=== PATIENT | male | born 1975 | race Two or more races ===

== ENCOUNTER → 2024-09-25 | Outpatient (CLI) | payer SELFPAY ==
[2024-09-25 08:29] LABS: Basophils % (Auto) 1 % (0-2.5); Eosinophils # (Auto) 0.2 Thou/mm3 (0.0-0.5); Eosinophils % (Auto) 3 % (0-10); Hematocrit 49.9 % (41.0-53.0); Hemoglobin 16.7 g/dL (13.5-16.0); Immature Granulocytes % (Auto) 0 % (0-0); Immature Granulocytes Auto 0.01 Thou/mm3 (0.00-0.00); Lymphocytes # (Auto) 2.2 Thou/mm3 (1.0-4.8); Lymphocytes % (Auto) 34 % (10-50); Mean Corpuscular HGB Conc 33.5 g/dl (31.0-37.0); Mean Corpuscular Hemoglobin 28.7 pg (25.0-35.0); Mean Corpuscular Volume 86 fL (80-100); Monocytes # (Auto) 0.7 Thou/mm3 (0.0-0.8); Monocytes % (Auto) 11 % (0-12); Neutrophils # (Auto) 3.5 Thou/mm3 (1.8-7.7); Neutrophils % (Auto) 52 % (37-80); Nucleated Red Blood Cell % 0 /100 WBC (0); Platelet Count 270 Thou/mm3 (140-440); RDW Standard Deviation 38.8 fL (35.1-43.9); Red Blood Count 5.81 Miln/mm3 (4.50-5.90); White Blood Count 6.6 Thou/mm3 (3.8-10.6)
[2024-09-25 08:54] LABS: Vitamin D 25 Hydroxy Total 25.5 ng/mL (7.3-40.2)
[2024-10-03 06:45] LABS: Estradiol, Ultrasensitive* 14 pg/mL (< OR = 29); Testosterone, Free,Dialysis 306.6 pg/mL (35.0-155.0); Testosterone, Total, Dialysis 1137 ng/dL (250-1100)
== END | disposition home or self-care (01) ==
LOC: COPL 07:15
PROVIDERS: PCP Internal Medicine
DX: D51.9 Vitamin B12 deficiency anemia, unspecified (principal); E29.1 Testicular hypofunction; M81.0 Age-related osteoporosis without current pathological fracture; R68.82 Decreased libido
CPT/HCPCS: 36415; 82306; 82670; 84402; 84403; 85025

== ENCOUNTER → 2025-08-10 | Outpatient (CLI) | payer OTHER, SELFPAY ==
--- NOTE | 2025-08-10 15:30 | XR_ITS ---
Examination: MRI lumbar spine without contrast Date and time of exam: August 10, 2025, 1602 hours, comparison September 13, 2021 INDICATION: Lower back pain radiating down the right leg 2 years Technique: Multiple MRI axial and sagittal sections lumbar spine. Sagittal T2-weighted images, TR 3500, TE 118 T1 weighted transverse sections, TR 688 T8.5, T2-weighted sagittal sections T1 weighted sagittal sections TR 621, TE 30 T2 axial sections, TR 4, 190, TE 84. Findings: Satisfactory line and lumbar vertebral bodies No lumbar fracture Disc desiccation L4-L5, L5-S1 Adequate marrow signal lumbar vertebral bodies No spondylolisthesis L5-S1 large, 10 mm central lumbar disc bulge contiguous with the right and left S1 nerve roots L4-L5 5 mm central lumbar disc bulge More cephalad levels unremarkable IMPRESSION: L5-S1 large, 10 mm, central lumbar disc bulge indenting the ventral margin thecal sac contiguous with the right and left S1 nerve roots L4-L5 5 mm central lumbar disc bulge
== END | disposition home or self-care (01) ==
LOC: SMRI 14:55
PROVIDERS: PCP Internal Medicine; Referring Provider Physical Medicine & Rehabilitation Pain Medicine; Visit Provider Physical Medicine & Rehabilitation Pain Medicine
DX: M51.370 Other intervertebral disc degeneration, lumbosacral region with discogenic back pain only (principal); M51.360 Other intervertebral disc degeneration, lumbar region with discogenic back pain only
CPT/HCPCS: 72148